=== PATIENT | male | born 1990 | race Caucasian/White ===

== ENCOUNTER 2019-06-30 13:57 | Emergency (ER) | payer OTHER ==
[~2019-06-30] VITALS: Ht 180.3 cm; Wt 76.2 kg
[2019-06-30] MEDS ORDERED: ACETAMINOPHEN ES 500 MG TABLET ONE (14:12)
[2019-06-30] MEDS ORDERED: IBUPROFEN 600 MG TABLET ONE (14:13)
[2019-06-30] MEDS ORDERED: ACETAMINOPHEN 325 MG TABLET PO ONE (14:15)
[2019-06-30] MEDS ORDERED: IBUPROFEN 600 MG TABLET PO ONE (14:15)
--- NOTE | 2019-06-30 14:51 | NUR ---
Patient discharged to home in stable conditon. Written and verbal after care instructions given. Patient verbalizes understanding of instructions.pt wakls i nsteady gait. no sign of distress.
[2019-06-30 14:52] VITALS: BP 110/77
== END 2019-06-30 14:53 | disposition home or self-care (01) ==
LOC: ER 13:57
DX: J11.1 Influenza due to unidentified influenza virus with other respiratory manifestations (principal)
CPT/HCPCS: A4663; A9150